=== PATIENT | male | born 1975 | race Caucasian/White ===

== ENCOUNTER 2016-07-05 07:04 | Day surgery (SDC) | payer BC ==
--- NOTE | ~2016-07-05 | EGD ---
EGD REPORT [facility] [address] [place] [address] NAME: RIP HOFFMAN : [birth year] STATUS : REG [facility]#: [id number] AGE: 40 ADM/REG DATE : 07/05/16 MR#: [id number] REPORT SERV DATE: 07/05/16 DICTATED BY: JUNIOR GARSIA DATE: 07/05/16 REPORT STATUS : Draft [facility]ANSCRIBED BY: [facility] DATE: 07/05/16 Endoscopy Center Patient Name: Rip Hoffman Date of : 1975 Attending MD: JUNIOR GARSIA MD Procedure Date No Time: 07/05/2016 Procedure: Colonoscopy Indications: Rectal bleeding Referring MD: ASHOK SINHA III Medicines: as per anesthesia Complications: No immediate complications. Procedure: Pre-Anesthesia Assessment: - ASA Grade Assessment: II - A patient with mild systemic disease. After I obtained informed consent, the scope was passed under direct vision. Throughout the procedure, the patient's blood pressure, pulse, and oxygen saturations were monitored continuously. The PCF [id number] was introduced through the anus and advanced to the cecum, identified by appendiceal orifice and ileocecal valve. The colonoscopy was performed without difficulty. The patient tolerated the procedure. The quality of the bowel preparation was adequate to identify polyps. Findings: The perianal and digital rectal examinations were normal. Internal hemorrhoids were found during endoscopy and were mild. Impression: - Internal hemorrhoids. Recommendation: - Repeat colonoscopy in 10 years for surveillance. Procedure Code(s): --- Professional --- 26765, Colonoscopy, flexible, proximal to splenic flexure; diagnostic, with or without collection of specimen(s) by brushing or washing, with or without colon decompression (separate procedure) Diagnosis Code(s): --- Professional --- K64.8, Other hemorrhoids K62.5, Hemorrhage of anus and rectum CPT copyright 2013 [employer]. All rights reserved. EGD REPORT [facility] [address] [place]. [address] NAME: RIP HOFFMAN : [birth year] STATUS : REG [facility] PAT#: [id number] AGE: 40 ADM/REG DATE : 07/05/16 MR#: [id number] REPORT SERV DATE: 07/05/16 DICTATED BY: JUNIOR GARSIA DATE: 07/05/16 REPORT STATUS : Draft TRANSCRIBED BY: [employer] [facility] DATE: 07/05/16 The codes documented in this report are preliminary and upon coat operator insulator review may be revised to meet current compliance requirements. JUNIOR GARSIA MD 07/05/2016 9:21 AM This report has been signed electronically. Number of Addenda: 0 Note Initiated On: 07/05/2016 8:[address] [place], [place] [address], [place] [address]
[~2016-07-05 07:04] MED LIST: ACET500CAP PO; ALEVE220 MG PO; CIP5 PO; CLARIT10 PO; HERBAL; JANUMET XR 50-1 EACH PO; MULTIPLE VIT PO; PRILO PO; PRIN20 PO; PRINZIDE1 TA1 PO; PROAIR HFA INH; SINGULAIR1 PO; ZOCOR20 PO; [UNRECOGNIZED DRUG - OTHER]; [UNRECOGNIZED DRUG - OTHER] PO
== END 2016-07-05 23:59 | disposition home or self-care (01) ==
LOC: DMU 07:04
PROVIDERS: Internal Medicine Gastroenterology
PROC: 0DJD8ZZ Inspection of Lower Intestinal Tract, Via Natural or Artificial Opening Endoscopic (ICD-10-PCS; principal; 2016-07-05 08:30)
DX: K64.8 Other hemorrhoids (principal); K62.5 Hemorrhage of anus and rectum; I10 Essential (primary) hypertension; J45.909 Unspecified asthma, uncomplicated; E11.9 Type 2 diabetes mellitus without complications; E66.9 Obesity, unspecified; Z68.35 Body mass index [BMI] 35.0-35.9, adult; Z88.0 Allergy status to penicillin; Z79.1 Long term (current) use of non-steroidal anti-inflammatories (NSAID); Z79.84 Long term (current) use of oral hypoglycemic drugs; Z79.899 Other long term (current) drug therapy
CPT/HCPCS: 82962